=== PATIENT | female | born 1940 | race Caucasian/White ===

== ENCOUNTER → 2017-09-08 | Outpatient (CLI) | payer OTHER ==
[~2017-09-08] MED LIST: ACET325; ALBU90OI INH; APRODINE; ASPI325; ASPI325 PO; ASPI81EC; Bactrim Ds Tab1 EACH PO; Benadryl25 MG; CHOL10002; DOXY100 PO; FLUT1DIS5 INH; FOLI1 PO; Flovent Diskus50 MCG; GLUC500; HYDACE5 PO; HYDCHL12.5; HYDR1TAB94 PO; LEVFLO500 PO; LISI20 PO; MAGNESIUM; METTREX2.5; METTREX2.5 PO; MOXI400 PO; MULTIVITAMIN; MULVITMINF; NAPR500; PRED20 PO; PSYL5.85P; QUININE SULFATE; ROSU10TA; ROSU10TA PO; RXHYDACE PO; TYLENOL; nystatin TOP
== END | disposition home or self-care (01) ==
LOC: LAB EV 13:25
DX: N39.0 Urinary tract infection, site not specified (principal)
CPT/HCPCS: 87077; 87086; 87186

== ENCOUNTER → 2017-10-09 | Outpatient (CLI) | payer OTHER ==
[~2017-10-09] MED LIST changes: -ACET325; -Bactrim Ds Tab1 EACH PO; -Benadryl25 MG; +FLUSAL2505; -FLUT1DIS5 INH; -FOLI1 PO; -METTREX2.5; -METTREX2.5 PO; -nystatin TOP
== END ==
LOC: LAB EV 12:05 → LAB SHORT 12:05
DX: R30.0 Dysuria (principal)
CPT/HCPCS: 87077; 87086; 87186

== ENCOUNTER 2018-06-29 10:30 | Day surgery (SDC) | payer OTHER ==
[~2018-06-29 10:30] MED LIST changes: +ACET325; +Bactrim Ds Tab1 EACH PO; +Benadryl25 MG; -FLUSAL2505; +FLUT1DIS5 INH; +FOLI1 PO; +METTREX2.5; +METTREX2.5 PO; +nystatin TOP
== END 2018-06-29 22:41 | disposition home or self-care (01) ==
LOC: WOUND 10:30
DX: Z48.01 Encounter for change or removal of surgical wound dressing (principal); Z90.49 Acquired absence of other specified parts of digestive tract; R21 Rash and other nonspecific skin eruption
CPT/HCPCS: G0463

== ENCOUNTER 2018-07-16 14:35 | Day surgery (SDC) | payer OTHER | END 2018-07-16 22:42 | disposition home or self-care (01) | LOC: WOUND 14:35 | DX: Z48.01 Encounter for change or removal of surgical wound dressing (principal); Z90.49 Acquired absence of other specified parts of digestive tract; R21 Rash and other nonspecific skin eruption | CPT/HCPCS: G0463 ==

== ENCOUNTER → 2018-09-15 | Outpatient (CLI) | payer OTHER | END | disposition home or self-care (01) | LOC: LAB SHORT 08:48 → PLD 08:48 | DX: D48.5 Neoplasm of uncertain behavior of skin (principal) | CPT/HCPCS: 88305 ==

== ENCOUNTER → 2019-02-18 | Outpatient (CLI) | payer OTHER | END | disposition home or self-care (01) | LOC: LAB 10:00 → LAB SHORT 10:00 | DX: R05 Cough (principal) | CPT/HCPCS: 87070; 87205 ==

== ENCOUNTER → 2019-03-15 | Outpatient (CLI) | payer OTHER | END | disposition home or self-care (01) | LOC: LAB SHORT 08:14 → PLD 08:14 | DX: C44.329 Squamous cell carcinoma of skin of other parts of face (principal) | CPT/HCPCS: 88305 ==

== ENCOUNTER → 2019-09-14 | Outpatient (CLI) | payer OTHER ==
[2019-09-14 15:21] LABS: Source, Urine Clean Catch
[2019-09-14 16:00] LABS: Appearance, Urine Hazy (Clear); Bilirubin, Urine Neg (Neg); Blood, Urine 5+ (Neg); Color, Urine Yellow (P-Yellow); Glucose Qualitative, Urine Neg (Neg); Ketones, Urine Neg (Neg); Leukocyte Esterase, Urine 3+ (Neg); Nitrite, Urine Pos (Neg); Protein, Urine 2+ (Neg); Specific Gravity, Urine 1.005 (1.003-1.022); Urobilinogen, Urine NORM (Normal)
[2019-09-14 16:15] LABS: Red Blood Cells, Urine 25-50 /hpf (0-2)
[2019-09-14 16:16] LABS: Bacteria Many /hpf; Squamous Epithelial Cells Few /hpf (Few)
== END ==
LOC: LAB SHORT 15:20 → LAB 15:20 → LAB FUT 09-13 13:45
PROVIDERS: Internal Medicine
DX: R31.9 Hematuria, unspecified (principal)
CPT/HCPCS: 81001; 87077; 87086; 87186

== ENCOUNTER 2019-09-15 13:51 | Emergency (ER) | payer OTHER ==
[~2019-09-15] VITALS: Ht 175.3 cm; Wt 108.9 kg
[2019-09-15 15:34] LABS: BASOPHILS ABSOLUTE AUTO 0.02 K/mm3 (0.00-0.23); BASOPHILS PERCENT AUTO 0 % (0-2); EOSINOPHILS ABSOLUTE AUTO 0.08 K/mm3 (0.00-0.68); EOSINOPHILS PERCENT AUTO 1 % (0-6); Hematocrit 33.4 % (33.0-51.0); Hemoglobin 10.9 g/dL (11.5-16.0); IMMATURE GRAN ABSOLUTE AUTO 0.05 K/mm3 (0.00-0.10); IMMATURE GRAN PERCENT AUTO 1 % (0-1); LYMPHOCYTES ABSOLUTE AUTO 1.24 K/mm3 (0.84-5.20); LYMPHOCYTES PERCENT AUTO 14 % (21-46); MONOCYTES ABSOLUTE AUTO 1.32 K/mm3 (0.16-1.47); MONOCYTES PERCENT AUTO 15 % (4-13); Mean Corpuscular HGB Conc 32.6 g/dL (31.5-36.5); Mean Corpuscular Volume 104 fL (80-100); Mean Platelet Volume 9.5 fL (9.1-12.4); NEUTROPHILS PERCENT AUTO 69 % (41-73); Platelet Count 212 K/mm3 (150-400); RDW Coefficient Variation 14.8 % (11.7-14.2); RDW Standard Deviation 55.3 fL (35.1-46.3); Red Blood Cell Count 3.21 M/mm3 (3.80-5.20); White Blood Cell Count 8.71 K/mm3 (4.00-11.30)
[2019-09-15 15:53] LABS: Alanine Aminotransfer (ALT/SGP 42 U/L (12-78); Albumin, Blood 3.6 g/dL (3.4-5.0); Albumin/Globulin Ratio 0.9 (0.8-1.8); Alk Phos 95 U/L (50-136); Anion Gap 7 mmol/L (6-16); Aspartate Aminotrans (AST/SGOT 21 U/L (12-37); Bilirubin, Total 0.7 mg/dL (0.1-1.0); Blood Urea Nitrogen 15 mg/dL (8-24); Bun/Creatinine Ratio 16.8 (12.0-20.0); CO2, Blood 27 mmol/L (21-32); Calcium, Blood 8.9 mg/dL (8.5-10.1); Chloride, Blood 101 mmol/L (98-108); Creatinine, Blood 0.89 mg/dL (0.40-1.00); Globulin, Blood 3.9 g/dL (2.2-4.0); Glomerular Filtration Rate >60 (60-); Glucose, Blood 101 mg/dL (70-99); Potassium, Blood 3.7 mmol/L (3.5-5.5); Sodium, Blood 135 mmol/L (136-145); Total Protein, Blood 7.5 g/dL (6.4-8.2)
== END 2019-09-15 16:10 | disposition home or self-care (01) ==
LOC: US 13:51 → EDSTATUS 14:00 → US 14:00
PROVIDERS: Physician Assistant
DX: I71.3 Abdominal aortic aneurysm, ruptured (principal); N39.0 Urinary tract infection, site not specified; I10 Essential (primary) hypertension; E78.5 Hyperlipidemia, unspecified; J44.9 Chronic obstructive pulmonary disease, unspecified; Z87.891 Personal history of nicotine dependence; Z79.899 Other long term (current) drug therapy
CPT/HCPCS: 36415; 71046; 76705; 80053; 85025; 99284-25

== ENCOUNTER 2020-09-11 10:42 | Day surgery (SDC) | payer OTHER ==
[~2020-09-11] VITALS: Ht 175.3 cm; Wt 118.6 kg
[2020-09-11] MEDS ORDERED: FUROSEMIDE20 MG PO (11:22)
[2020-09-11] MEDS ORDERED: KLOR-CON 1010 ME1 PO (11:22)
[2020-09-11] MEDS ORDERED: ASPI81CH PO (11:23)
[2020-09-11] MEDS ORDERED: VITAMIN D31000 UNI1 PO (11:23)
[2020-09-11] MEDS ORDERED: LISI20 PO (11:25)
--- NOTE | 2020-09-11 17:22 | NUR ---
DR LEE AT BEDSIDE TO DISCUSS WITH FAMILY HOW PROCEDURE WENT TODAY. PT PREVIOUSLY UP TO RESTROOM VIA W/C. UNMEASURED VOID. PT VERBALIZED UNDERSTANDING OF D/C INSTRUCTIONS. PAPERWORK PROVIDED IN FOLDER. IV REMOVED FROM RFA WITH CATH INTACT, PRESSURE DRESSING APPLIED. RIGHT GROIN SITE SOFT NON TENDER WITH NO BLEEDING, BRUISING IS NOTED. DRESSING C/D/I. NO ACUTE DISTRESS NOTED AT TIME OF DISCHARGE.
== END 2020-09-11 17:30 | disposition home or self-care (01) ==
LOC: MHTC 10:42
DX: I71.4 Abdominal aortic aneurysm, without rupture (principal); I10 Essential (primary) hypertension; J44.9 Chronic obstructive pulmonary disease, unspecified; Z88.0 Allergy status to penicillin; Z88.8 Allergy status to other drugs, medicaments and biological substances; Z79.82 Long term (current) use of aspirin
CPT/HCPCS: 36245; 36247; 37242; 75625; 75726; 75774; 93926; 99152; 99153; 99284-25; A9270; C1760; C1769; C1887; C1894; J0360; J1644; J2060; J2250; J3010; J7030; J7050; Q9967

== ENCOUNTER 2020-09-11 20:13 | Emergency (ER) | payer OTHER ==
[~2020-09-11] VITALS: Ht 170.2 cm; Wt 113.4 kg
[~2020-09-11 20:13] MED LIST changes: +ASPI81CH PO; +FUROSEMIDE20 MG PO; +KLOR-CON 1010 ME1 PO; +VITAMIN D31000 UNI1 PO
== END 2020-09-11 23:05 | disposition home or self-care (01) ==
LOC: ER 20:13
DX: I97.618 Postprocedural hemorrhage of a circulatory system organ or structure following other circulatory system procedure (principal); Y83.8 Other surgical procedures as the cause of abnormal reaction of the patient, or of later complication, without mention of misadventure at the time of the procedure
CPT/HCPCS: 93926; 99284-25

== ENCOUNTER → 2021-03-28 | Outpatient (CLI) | payer OTHER | END | disposition home or self-care (01) | LOC: LAB 15:21 → LAB SHORT 15:21 → EDSTATUS 10-08 12:45 → LAB FUT 10-08 12:45 | DX: I71.4 Abdominal aortic aneurysm, without rupture (principal); R05 Cough | CPT/HCPCS: 87102 ==

== ENCOUNTER 2021-06-02 12:43 | Inpatient (IN) | payer OTHER ==
[~2021-06-02] VITALS: Ht 175.3 cm; Wt 109.4 kg
[2021-06-02 12:59] LABS: BASOPHILS ABSOLUTE AUTO 0.03 K/mm3 (0.00-0.23); BASOPHILS PERCENT AUTO 1 % (0-2); EOSINOPHILS ABSOLUTE AUTO 0.16 K/mm3 (0.00-0.68); EOSINOPHILS PERCENT AUTO 2 % (0-6); Hematocrit 39.6 % (33.0-51.0); Hemoglobin 13.2 g/dL (11.5-16.0); IMMATURE GRAN ABSOLUTE AUTO 0.01 K/mm3 (0.00-0.10); IMMATURE GRAN PERCENT AUTO 0 % (0-1); LYMPHOCYTES ABSOLUTE AUTO 1.44 K/mm3 (0.84-5.20); LYMPHOCYTES PERCENT AUTO 22 % (21-46); MONOCYTES PERCENT AUTO 9 % (4-13); Mean Corpuscular HGB 32.5 pg (26.0-34.0); Mean Corpuscular HGB Conc 33.3 g/dL (31.5-36.5); Mean Corpuscular Volume 98 fL (80-100); Mean Platelet Volume 9.5 fL (9.1-12.4); NEUTROPHILS PERCENT AUTO 66 % (41-73); Platelet Count 178 K/mm3 (150-400); RDW Coefficient Variation 13.6 % (11.7-14.2); RDW Standard Deviation 48.3 fL (35.1-46.3); Red Blood Cell Count 4.06 M/mm3 (3.80-5.20); White Blood Cell Count 6.64 K/mm3 (4.00-11.30)
[2021-06-02 13:23] LABS: Alanine Aminotransfer (ALT/SGP 17 U/L (12-78); Albumin, Blood 3.2 g/dL (3.4-5.0); Albumin/Globulin Ratio 0.8 (0.8-1.8); Alk Phos 76 U/L (50-136); Anion Gap 7 mmol/L (6-16); Aspartate Aminotrans (AST/SGOT 18 U/L (12-37); Bilirubin, Total 0.7 mg/dL (0.1-1.0); Blood Urea Nitrogen 12 mg/dL (8-24); Bun/Creatinine Ratio 13.7 (12.0-20.0); CO2, Blood 30 mmol/L (21-32); Calcium, Blood 8.8 mg/dL (8.5-10.1); Chloride, Blood 106 mmol/L (98-108); Creatinine, Blood 0.88 mg/dL (0.40-1.00); Globulin, Blood 3.9 g/dL (2.2-4.0); Glomerular Filtration Rate >60 (60-); Glucose, Blood 108 mg/dL (70-99); Potassium, Blood 3.6 mmol/L (3.5-5.5); Sodium, Blood 143 mmol/L (136-145); Total Protein, Blood 7.1 g/dL (6.4-8.2)
[2021-06-02 13:46] LABS: International Normalized Ratio 1.04; Prothrombin Time Results 10.9 Sec (9.7-11.5)
[2021-06-02 16:39] LABS: CHOL/HDL RATIO 3.8; Cholesterol 214 mg/dL (50-200); HDL Cholesterol 56 mg/dL (>39); LDL/HDL RATIO 2.4; Low Density Lipoprotein Chol 133 mg/dL (0-110); Triglycerides 125 mg/dL (30-160); Troponin I <0.015 ng/mL (0.000-0.040); Very Low Density Lipoprot Chol 25 mg/dL (6-32)
[2021-06-02 18:41] LABS: Hematocrit 36.6 % (33.0-51.0); Hemoglobin 12.4 g/dL (11.5-16.0)
[2021-06-03 05:39] LABS: BASOPHILS ABSOLUTE AUTO 0.03 K/mm3 (0.00-0.23); BASOPHILS PERCENT AUTO 1 % (0-2); EOSINOPHILS ABSOLUTE AUTO 0.18 K/mm3 (0.00-0.68); EOSINOPHILS PERCENT AUTO 3 % (0-6); Hematocrit 37.3 % (33.0-51.0); Hemoglobin 12.1 g/dL (11.5-16.0); IMMATURE GRAN ABSOLUTE AUTO 0.02 K/mm3 (0.00-0.10); IMMATURE GRAN PERCENT AUTO 0 % (0-1); LYMPHOCYTES ABSOLUTE AUTO 1.63 K/mm3 (0.84-5.20); LYMPHOCYTES PERCENT AUTO 28 % (21-46); MONOCYTES ABSOLUTE AUTO 0.57 K/mm3 (0.16-1.47); MONOCYTES PERCENT AUTO 10 % (4-13); Mean Corpuscular HGB 32.3 pg (26.0-34.0); Mean Corpuscular HGB Conc 32.4 g/dL (31.5-36.5); Mean Corpuscular Volume 100 fL (80-100); Mean Platelet Volume 9.8 fL (9.1-12.4); NEUTROPHILS ABSOLUTE AUTO 3.34 K/mm3 (1.96-9.15); NEUTROPHILS PERCENT AUTO 58 % (41-73); Platelet Count 152 K/mm3 (150-400); RDW Coefficient Variation 13.9 % (11.7-14.2); RDW Standard Deviation 50.5 fL (35.1-46.3); Red Blood Cell Count 3.75 M/mm3 (3.80-5.20); White Blood Cell Count 5.77 K/mm3 (4.00-11.30)
[2021-06-03 06:31] LABS: Albumin, Blood 2.9 g/dL (3.4-5.0); Albumin/Globulin Ratio 0.9 (0.8-1.8); Bilirubin, Total 0.6 mg/dL (0.1-1.0); Bun/Creatinine Ratio 14.4 (12.0-20.0); Calcium, Blood 8.9 mg/dL (8.5-10.1); Creatinine, Blood 0.9 mg/dL (0.40-1.00); Globulin, Blood 3.3 g/dL (2.2-4.0); Potassium, Blood 3.2 mmol/L (3.5-5.5); Total Protein, Blood 6.2 g/dL (6.4-8.2)
[2021-06-03 09:45] LABS: Influenza A, PCR NEGATIVE (NEGATIVE); Influenza B, PCR NEGATIVE (NEGATIVE); Resp Syncytial Virus, PCR NEGATIVE (NEGATIVE); SARS-Cov-2 (COVID-19) PCR, MMC NEGATIVE (NEGATIVE)
--- NOTE | 2021-06-03 10:30 | NUR ---
Echocardiogram completed.
--- NOTE | 2021-06-03 17:55 | NUR ---
SHIFT SUMMARY: ASSUMED CARE AT 1535 FROM ED. PATIENT ADMITTED TO ED THIS AM WITH NEW ONSET RIGHT SIDED WEAKNESS. HEAD CT SCAN WAS NEGATIVE. CHEST XRAY COMPLETED. CAT SHOWED 10 MM OCCLUSION AND RIGHT NECK ATHROSCLEROSIS. DX TIA AND R-SIDED WEAKNESS. PATIENT IS CONTINENT/INCONTINENT. USED BEDPAN SHORTLY AFTER ARRIVAL AND CURRENTLY IN ATTENDS. NEURO CHECKS Q4 HRS. DR. CROWLEY CONVERTED PATIENT TO MED STATUS W/TELE. PATIENT RESTING IN BED. SHE HAS HOME CPAP THAT SHE RUNS ON 2L O2. WILL REPORT TO DAVID PEREA.
--- NOTE | 2021-06-03 22:12 | NUR ---
PT IS ALERT AND ORIENTED X4. PT'S ARE STABLE AND SHE IS CURRENTLY ON HOME CPAP WITH 2L BLEED IN. PT HAS A NOTICABLE RIGHT FACIAL DROOP. THERE ARE NO SPEECH IMAPIMENTS NOTED AND SHE IS ABLE TO COMMUNICATE. PT HAS A RIGHT SIDE DEFICIT. CURRENTLY SLEEPING. CALL LIGHT IS WITHIN REACH. WILL CONTINUE TO MONITOR.
--- NOTE | 2021-06-04 00:22 | NUR ---
PT ARRIVED TO ROOM 224 FROM PCU 2. PT A/O W/RIGHT SIDE FACIAL DROOP. RUE WEAK, LABOR DELIVERY SPECIALIST WEAK, PT UANBLE TO LIFT ARM, ARM DRIFTS DOWN WHEN LIFTED UP. RLE WEAKER THAN LEFT, BUT FEELS STRONGER THAN ARM. PT ASSISTED W/BEDPAN, AATTENDS CHANGED. PT ORIENTED TO ROOM/CALL LIGHT. CPAP ON W/2L O2 BLEED IN PER PT BASELINE. WILL MONITOR AND TX PER ORDERS.
[2021-06-04 05:17] LABS: Albumin, Blood 2.8 g/dL (3.4-5.0); Albumin/Globulin Ratio 0.9 (0.8-1.8); Bilirubin, Total 0.7 mg/dL (0.1-1.0); Bun/Creatinine Ratio 15.7 (12.0-20.0); Calcium, Blood 8.6 mg/dL (8.5-10.1); Creatinine, Blood 1.02 mg/dL (0.40-1.00); Potassium, Blood 3.5 mmol/L (3.5-5.5); Total Protein, Blood 5.8 g/dL (6.4-8.2)
--- NOTE | 2021-06-04 06:16 | NUR ---
PT TO IMAGING FOR CT
--- NOTE | 2021-06-04 06:59 | NUR ---
PT VSS SINCE ARRIVING TO FLOOR, CPAP W/2LO2 BLEED IN ON WHILE SLEEPING. NO CHANGES TO NEURO STATUS NOTED. CT SCAN COMPLETED THIS AM; AWAITING RESULTS. PT A/O, IS ABLE TO MAKE NEEDS KNOWN. ATTENDS CHANGED X1. PT MAS ASSIST TO TRANSFER.
[2021-06-04 13:24] LABS: Source, Urine Clean Catch
[2021-06-04 13:27] LABS: Appearance, Urine Clear (Clear); Bilirubin, Urine Neg (Neg); Blood, Urine 3+ (Neg); Color, Urine Yellow (P-Yellow); Glucose Qualitative, Urine Neg (Neg); Ketones, Urine Neg (Neg); Leukocyte Esterase, Urine Neg (Neg); Nitrite, Urine Neg (Neg); Protein, Urine Neg (Neg); Urobilinogen, Urine NORM (Normal)
[2021-06-04 13:53] LABS: Red Blood Cells, Urine 0-2 /hpf (0-2); Squamous Epithelial Cells Mod /hpf (Few); White Blood Cells, Urine 0-2 /hpf (0-5)
[2021-06-04 13:54] LABS: Bacteria Few /hpf
[2021-06-04 13:55] LABS: Calcium Oxalate Crystals Few /hpf
--- NOTE | 2021-06-04 18:43 | NUR ---
SHIFT SUMMARY PT KEPT A GOOD ATTITUDE TODAY. WORKED w/ THERAPY & WAS ABLE TO GET UP TO CHAIR w/ 2 MAX ASSIST. EATING, DRINKING, VOIDING, & PASSING GAS. NO NEURO CHANGES DURING MY SHIFT.
[2021-06-05 04:50] LABS: Bun/Creatinine Ratio 19.1 (12.0-20.0); Calcium, Blood 8.4 mg/dL (8.5-10.1); Creatinine, Blood 0.94 mg/dL (0.40-1.00); Potassium, Blood 3.7 mmol/L (3.5-5.5)
--- NOTE | 2021-06-05 07:33 | NUR ---
PT HAD NO CHANGES T/O NIGHT; VSS. RUE REMAINS WEAK, PT ABLE TO LIFT ARM APPX 3 INCHES, IS ONLY ABLE TO HOLD ARM UP FOR A FEW SECONDS. PT DENIED WONG OR VISUAL DISTURBANCES. PT SWALLOWING W/O DIFFICULTY. ATTENDS CHANGED PRN. PT REPOSITIONING CRISTIAN T/O NIGHT.
--- NOTE | 2021-06-05 17:10 | NUR ---
SHIFT SUMMARY PATIENT AOX4; ADMITTED WITH R SIDE WEAKNESS. UPON NERUO CHECK ASSESSMENT TODAY, PATIENT'S R INSTRUCTOR LOOPING WEAK, R PLANTAR/DORSI FLEXION WEAK; PATIENT UNABLE TO KEEP RIGHT ARM LIFTED IN AM. PT/OT EVAL AND REC UP WITH MAX ASSIST PIVOT BED TO CHAIR TRANSFER. RN AND COMMUNICATIONS ENGINEERING TECHNICIAN PERFORMED IN AFTERNOON. PATIENT HAD FOLLOW UP CT HEAD ON SHIFT, NO ACUTE FINDINGS. RAPID COVID TEST NEGATIVE, RN CALLED REPORT TO MASHA PIERRE FOR TRANSFER. AWAITING EMS TO ARRIVE FOR TRANSFER.
[2021-06-05 17:11] LABS: Influenza A, PCR NEGATIVE (NEGATIVE); Influenza B, PCR NEGATIVE (NEGATIVE); Resp Syncytial Virus, PCR NEGATIVE (NEGATIVE); SARS-Cov-2 (COVID-19) PCR, MMC NEGATIVE (NEGATIVE)
--- NOTE | 2021-06-05 18:08 | NUR ---
DISCHARGE PT LEFT FOR SNF AT THIS TIME, BELONGINGS WITH PATIENT. 2 ASSIST TO WHEELCHAIR PT TOLERATED WELL. PREVIOUS RN CALLED REPORT, IV REMOVED. ALL BELONGINGS WITH PATIENT.
== END 2021-06-05 18:11 | DRG 92 ==
LOC: ER 12:43 → ERHOLD 12:44 → PCU 06-03 15:23 → SURS 06-03 23:53
PROVIDERS: Emergency Medicine; Family Medicine; Student in an Organized Health Care Education/Training Program; ADMIT Hospitalist
DX: I67.1 Cerebral aneurysm, nonruptured (principal); G81.91 Hemiplegia, unspecified affecting right dominant side; I16.1 Hypertensive emergency; J44.9 Chronic obstructive pulmonary disease, unspecified; G47.33 Obstructive sleep apnea (adult) (pediatric); I10 Essential (primary) hypertension; Z20.822 Contact with and (suspected) exposure to COVID-19; Z88.0 Allergy status to penicillin; Z88.6 Allergy status to analgesic agent; Z23 Encounter for immunization; L40.9 Psoriasis, unspecified; Z98.890 Other specified postprocedural states; Z90.49 Acquired absence of other specified parts of digestive tract; Z96.612 Presence of left artificial shoulder joint; Z88.8 Allergy status to other drugs, medicaments and biological substances; Z79.82 Long term (current) use of aspirin; Z79.899 Other long term (current) drug therapy
CPT/HCPCS: 0241U; 36415; 70450; 70496; 71045; 80048; 80053; 80061; 81001; 82947; 83036; 84484; 85014; 85018; 85025; 85610; 87040; 93005; 93010; 93306; 94640; 94664; 94762; 96372; 96374; 96375; 96376; 97110; 97162; 97166; 97530; 97535; 99285-25; A9270; J0360; J1650; J2405; J7040; Q9967

== ENCOUNTER 2024-09-26 18:42 | Emergency (ER) | payer OTHER ==
[~2024-09-26] VITALS: Ht 175.3 cm; Wt 102.3 kg
[2024-09-26 19:17] LABS: BASOPHILS ABSOLUTE AUTO 0.02 K/mm3 (0.00-0.23); BASOPHILS PERCENT AUTO 0 % (0-2); EOSINOPHILS PERCENT AUTO 0 % (0-6); Hematocrit 39.4 % (33.0-51.0); Hemoglobin 13.6 g/dL (11.5-16.0); IMMATURE GRAN ABSOLUTE AUTO 0.04 K/mm3 (0.00-0.10); IMMATURE GRAN PERCENT AUTO 0 % (0-1); LYMPHOCYTES ABSOLUTE AUTO 0.28 K/mm3 (0.84-5.20); LYMPHOCYTES PERCENT AUTO 3 % (21-46); MONOCYTES ABSOLUTE AUTO 0.33 K/mm3 (0.16-1.47); MONOCYTES PERCENT AUTO 3 % (4-13); Mean Corpuscular HGB 32.8 pg (26.0-34.0); Mean Corpuscular HGB Conc 34.5 g/dL (31.5-36.5); Mean Corpuscular Volume 95 fL (80-100); Mean Platelet Volume 9.9 fL (9.1-12.4); NEUTROPHILS ABSOLUTE AUTO 9.99 K/mm3 (1.96-9.15); NEUTROPHILS PERCENT AUTO 94 % (41-73); Platelet Count 151 K/mm3 (150-400); RDW Coefficient Variation 13.9 % (11.7-14.2); RDW Standard Deviation 48.2 fL (35.1-46.3); Red Blood Cell Count 4.15 M/mm3 (3.80-5.20); White Blood Cell Count 10.66 K/mm3 (4.00-11.30)
[2024-09-26 19:37] LABS: Albumin, Blood 3.3 g/dL (3.4-5.0); Albumin/Globulin Ratio 0.9 (0.8-1.8); Bilirubin, Total 4.6 mg/dL (0.1-1.0); Bun/Creatinine Ratio 21.5 (12.0-20.0); Calcium, Blood 8.9 mg/dL (8.5-10.1); Creatinine, Blood 0.89 mg/dL (0.40-1.00); Globulin, Blood 3.8 g/dL (2.2-4.0); Magnesium, Blood 1.7 mg/dL (1.6-2.4); Potassium, Blood 3.4 mmol/L (3.5-5.5); Total Protein, Blood 7.1 g/dL (6.4-8.2)
[2024-09-26 19:53] LABS: International Normalized Ratio 1.07; Prothrombin Time Results 11.4 Sec (9.7-11.5)
[2024-09-26 20:00] LABS: Source, Urine Clean Catch
[2024-09-26 20:01] LABS: CORONAVIRUS COVID-19 AG Negative (NEGATIVE); INFLUENZA A AG Negative (NEGATIVE); INFLUENZA B AG Negative (NEGATIVE)
[2024-09-26 20:04] LABS: Appearance, Urine Hazy (Clear); Bilirubin, Urine Neg (Neg); Blood, Urine 5+ (Neg); Color, Urine Yellow (P-Yellow); Glucose Qualitative, Urine Neg (Neg); Ketones, Urine Neg (Neg); Leukocyte Esterase, Urine 2+ (Neg); Nitrite, Urine Pos (Neg); Protein, Urine 2+ (Neg); Urobilinogen, Urine 1+ (Normal)
[2024-09-26 20:33] LABS: Bacteria Many /hpf; Squamous Epithelial Cells Mod /hpf (Few); Transitional Epithelial Cells Few /hpf (0-Rare)
[2024-09-26] MEDS ORDERED: CefTRIAXone Sodium 1,000 MG in NS 100 ML IV ONE (20:40)
[2024-09-26] MEDS ORDERED: Ciprofloxacin 400MG/D5 200ML 200 ML IV ONE (22:20)
[2024-09-26] MEDS ORDERED: MetroNIDAZOLE 500MG/NS 100 ml 100 ML IV ONE (22:20)
[2024-09-26] MEDS ORDERED: Heparin Sodium 5000 Units/ML 1ML MDV IV ONE (23:45)
[2024-09-26] MEDS ORDERED: Heparin Sodium,Porcine/0.5 NS 500 ML IV SCH (23:45)
[2024-09-27 02:00] VITALS: BP 122/59
== END 2024-09-27 02:56 | disposition short-term general hospital (02) ==
LOC: ER 18:42
PROVIDERS: Student in an Organized Health Care Education/Training Program
DX: I21.4 Non-ST elevation (NSTEMI) myocardial infarction (principal); J44.9 Chronic obstructive pulmonary disease, unspecified; K43.9 Ventral hernia without obstruction or gangrene; I71.40 Abdominal aortic aneurysm, without rupture, unspecified; N30.90 Cystitis, unspecified without hematuria; R00.0 Tachycardia, unspecified; R79.89 Other specified abnormal findings of blood chemistry; Z87.891 Personal history of nicotine dependence; I10 Essential (primary) hypertension; Z88.0 Allergy status to penicillin; Z88.8 Allergy status to other drugs, medicaments and biological substances; Z79.51 Long term (current) use of inhaled steroids; Z79.82 Long term (current) use of aspirin; Z79.899 Other long term (current) drug therapy
CPT/HCPCS: 36415; 51701; 71260; 74177; 80053; 81001; 83605; 83735; 83880; 84484; 85025; 85520; 85610; 85730; 87040; 87077; 87086; 87186; 87428-QW; 93005; 93010; 96365-59; 96367-59; 96368; 96375; 99285-25; J0696; J0744; J1644; Q9967